=== PATIENT | female | born 1945 | race Caucasian/White ===

== ENCOUNTER → 2018-08-22 | Outpatient (CLI) | payer OTHER ==
--- NOTE | 2018-08-22 12:25 | EXE ---
[facility] [employer] [place] [address] STRESS ECHOCARDIOGRAM Name: AYAH PAZ Room #: REG CL [facility]#: [id number] ������������� Admission: 08/22/18 ������������� Attend Phys: Rafael Camacho, Discharge: ��� ������������� ��� Date of : 43 Date of Service: 08/22/18 1225 �� Report #: [id number] �������� ��������������������������������������������[id number] THIS REPORT FOR: //name// APPROVED REPORT Study performed: 08/22/2018 09:10:46 Exam: Stress Echocardiogram Indication: Syncope Patient Location: Out-Patient Stress Nurse: Keena Zurita RN Status: routine Ht: 5 ft 1 in HR: 66 bpm BP: 180/98 mmHg Medical History Medications: Coreg Allergies: No known drug allergies Cardiac Risk Factors: HTN, Hyperlipidemia, Tobacco History (Current/Recent) Procedure The patient underwent an Exercise Stress Test using the Remington Protocol. Blood pressure, heart rate, and EKG were monitored. An Echocardiogram was performed by mold tooling technician in four stages in quad fashion. At peak stress, four selected images were obtained and placed side by side with resting images for comparison. Stress Test Details Stress Test: Exercise stress testing was performed using a Remington protocol. HR Resting HR: 66 bpm Max Heart Rate (APMHR): 147 bpm Max HR Achieved: 137 bpm Target HR (85% APMHR): 124 bpm % of APMHR: 93 Recovery HR: 77 bpm HR response to stress: Normal HR response to stress BP Resting BP: 180/98 mmHg Max BP: 200/90 mmHg Recovery BP: 190/90 mmHg BP response to stress: Abnormal hypertensive response to stress. [facility] [address] [place] [address] STRESS ECHOCARDIOGRAM Name: BRANDIAYAH MARIANNE Room #: REG CL [facility]#: [id number] ������������� Admission: 08/22/18 ������������� Attend Phys: Rafael Camacho, Discharge: ��� ������������� ��� Date of : 43 Date of Service: 08/22/18 1225 �� Report #: [id number] �������� ��������������������������������������������[id number] ECG Resting ECG: Sinus Rhythm Stress ECG: Sinus Rhythm ST Change: Normal Maximum ST Deviation: 0 mm Arrhythmia: VPC Recovery ECG: Sinus Rhythm Recovery ST Change: Normal Recovery ST Deviation: 0 mm Recovery Arrhythmia: None Clinical Reason for Termination: Lightheaded, leg pain, fatigue Stress Symptoms: Leg Fatigue, Dyspnea Exercise duration: 2 min 44 sec Highest Stage Achieved: Stage 1: 1.7 mph at 10% grade. Exercise capacity: 4.6 METs Angina Score: None Stress ECG Conclusion Clinical: Non-ischemic ECG: Non-ischemic [place] Treadmill Score is 2.0 which is Moderate risk. Pre-Stress Echo The resting Echocardiogram showed normal left ventricular contractility with an estimated Ejection Fraction of about 55-60%. Mild to moderate MR, mild TR. Post-Stress Echo The stress Echocardiogram showed normal left ventricular contractility with an estimated Ejection Fraction of about 60-65%. Normal augmentation of wall motion in all segments on post stress images. Conclusion Clinical Response: Non-ischemic Exercise Capacity: Below Average Stress ECG Response: Non-ischemic Stress Echo Images: Non-ischemic The left ventricle is normal in size and wall thickness in both the rest and stress images. Normal stress echocardiogram with maximal exercise stress. Sensitivity of the test was reduced due to the short exercise time. [facility] [place] [address] [place] [address] STRESS ECHOCARDIOGRAM Name: AYAH PAZ Room #: REG [facility]#: [id number] ������������� Admission: 08/22/18 ������������� Attend Phys: Rafael Camacho, Discharge: ��� ������������� ��� Date of : 43 Date of Service: 08/22/18 1225 �� Report #: [id number] �������� ��������������������������������������������[id number] Other Information Study Quality: Good <Conclusion> The left ventricle is normal in size and wall thickness in both the rest and stress images. Normal stress echocardiogram with maximal exercise stress. Sensitivity of the test was reduced due to the short exercise time. ��������������������������������������������� <ELECTRONICALLY SIGNED> ���������������������������������������� By: Rafael Camacho MD, FACC ��������������������������������������������� 08/22/185 24 24 Rafael Camacho MD, FACC /INF
== END ==
LOC: CV 08:37
DX: R55 Syncope and collapse (principal)

== ENCOUNTER → 2018-10-15 | Outpatient (CLI) | payer OTHER | LOC: RAD 08:10 | DX: J84.10 Pulmonary fibrosis, unspecified (principal) ==

== ENCOUNTER → 2019-10-01 | Outpatient (CLI) | payer OTHER | LOC: CAT 07-02 06:13 | PROVIDERS: ATTEND Family Medicine | DX: Z12.2 Encounter for screening for malignant neoplasm of respiratory organs (principal); J43.8 Other emphysema; Z72.0 Tobacco use ==

== ENCOUNTER → 2020-03-25 | Outpatient (CLI) | payer OTHER | LOC: SJCVC 10:45 | PROVIDERS: ATTEND Internal Medicine | DX: I95.1 Orthostatic hypotension (principal); I10 Essential (primary) hypertension; J43.9 Emphysema, unspecified; E78.5 Hyperlipidemia, unspecified; Z72.0 Tobacco use; Z79.82 Long term (current) use of aspirin; Z79.899 Other long term (current) drug therapy ==

== ENCOUNTER → 2020-10-07 | Outpatient (CLI) | payer OTHER | LOC: CAT 09:53 | PROVIDERS: ATTEND Internal Medicine | DX: Z12.2 Encounter for screening for malignant neoplasm of respiratory organs (principal); I25.10 Atherosclerotic heart disease of native coronary artery without angina pectoris; K44.9 Diaphragmatic hernia without obstruction or gangrene; M25.78 Osteophyte, vertebrae; Z87.891 Personal history of nicotine dependence ==